=== PATIENT | female | born 1965 | race American Indian/Alaskan Native ===

== ENCOUNTER 2022-01-25 16:42 | Emergency (ER) | payer SELFPAY ==
[2022-01-25] MEDS ORDERED: Sodium Chloride 0.9% 1,000 ML IV ONE (17:46)
[2022-01-25] MEDS ORDERED: Iopamidol 612 MG/ML 100 ML Bottle IV SCH (18:15)
[2022-01-25] MEDS ORDERED: Sodium Chloride 0.9% 75 ML IV SCH (18:15)
== END 2022-01-25 19:56 | disposition home or self-care (01) ==
LOC: JP.ED 16:42
DX: K43.9 Ventral hernia without obstruction or gangrene (principal)
CPT/HCPCS: 71260; 74177; 96360; 99284; J3490; J7030; Q9967